=== PATIENT | female | born 1965 | race Caucasian/White ===

== ENCOUNTER 2016-11-26 15:16 | Emergency (ER) | payer OTHER ==
[~2016-11-26] VITALS: Ht 154.9 cm; Wt 78.2 kg
[~2016-11-26 15:16] MED LIST: ASCORBIC ACID250 MG PO; BENADRYL50 MG PO; CALCIUM 500 MG1 EACH PO; CARDIZEM30 MG PO; NOHOMEMEDS; VENLAFAXINE H37.5 M3 PO
[2016-11-26] MEDS ORDERED: NAPROSYN500 MG PO (16:54)
[2016-11-26 17:35] VITALS: BP 128/66
== END 2016-11-26 17:45 | disposition home or self-care (01) ==
LOC: EME 15:16
DX: S97.112A Crushing injury of left great toe, initial encounter (principal); W23.0XXA Caught, crushed, jammed, or pinched between moving objects, initial encounter
CPT/HCPCS: 73660; 99281; 99283